=== PATIENT | female | born 1955 | race Caucasian/White ===

== ENCOUNTER 2019-02-11 07:51 | Inpatient (IN) | payer OTHER ==
[~2019-02-11] VITALS: Ht 157.5 cm; Wt 71.8 kg
[~2019-02-11 07:51] MED LIST: ALBU2.5V5; Flovent Diskus50 MCG; LEVFLO500
[2019-02-11] MEDS ORDERED: LEVSOD50 PO (08:00)
[2019-02-11 08:21] LABS: BASOPHILS ABSOLUTE AUTO 0.11 K/mm3 (0.00-0.23); BASOPHILS PERCENT AUTO 1 % (0-2); EOSINOPHILS ABSOLUTE AUTO 0.04 K/mm3 (0.00-0.68); EOSINOPHILS PERCENT AUTO 0 % (0-6); Hemoglobin 14.7 g/dL (11.5-16.0); IMMATURE GRAN ABSOLUTE AUTO 0.25 K/mm3 (0.00-0.10); IMMATURE GRAN PERCENT AUTO 2 % (0-1); LYMPHOCYTES ABSOLUTE AUTO 1.95 K/mm3 (0.84-5.20); LYMPHOCYTES PERCENT AUTO 14 % (21-46); MONOCYTES ABSOLUTE AUTO 0.44 K/mm3 (0.16-1.47); MONOCYTES PERCENT AUTO 3 % (4-13); Mean Corpuscular HGB 29.5 pg (26.0-34.0); Mean Corpuscular HGB Conc 32.7 g/dL (31.5-36.5); Mean Corpuscular Volume 90 fL (80-100); Mean Platelet Volume 10.2 fL (9.1-12.4); NEUTROPHILS ABSOLUTE AUTO 11.29 K/mm3 (1.96-9.15); NEUTROPHILS PERCENT AUTO 80 % (41-73); Platelet Count 400 K/mm3 (150-400); RDW Coefficient Variation 13.4 % (11.7-14.2); RDW Standard Deviation 44.4 fL (35.1-46.3); Red Blood Cell Count 4.99 M/mm3 (3.80-5.20); White Blood Cell Count 14.08 K/mm3 (4.00-11.30)
[2019-02-11 08:33] LABS: Alanine Aminotransfer (ALT/SGP 15 U/L (12-78); Albumin, Blood 2.4 g/dL (3.4-5.0); Albumin/Globulin Ratio 0.6 (0.8-1.8); Alk Phos 82 U/L (50-136); Anion Gap 12 mmol/L (6-16); Aspartate Aminotrans (AST/SGOT 16 U/L (12-37); Bilirubin, Total 0.2 mg/dL (0.1-1.0); Blood Urea Nitrogen 12 mg/dL (8-24); Bun/Creatinine Ratio 20.4 (12.0-20.0); CO2, Blood 25 mmol/L (21-32); Calcium, Blood 8.3 mg/dL (8.5-10.1); Chloride, Blood 103 mmol/L (98-108); Creatinine, Blood 0.59 mg/dL (0.40-1.00); Globulin, Blood 4.3 g/dL (2.2-4.0); Glomerular Filtration Rate >60 (60-); Glucose, Blood 142 mg/dL (70-99); Potassium, Blood 3.1 mmol/L (3.5-5.5); Sodium, Blood 140 mmol/L (136-145); Total Protein, Blood 6.7 g/dL (6.4-8.2)
--- NOTE | 2019-02-11 16:07 | NUR ---
SHIFT SUMMARY PT STILL AWAITING TO GO TO OR THIS EVENING. NPO. MEDICATING WITH 50 MCG IV FENTANYL FOR ABD PAIN. PT HAS OCCASSIONAL NAUSEA, BUT HAS HAD NO EMESIS SINCE ER. JOHNFRAN PRN. IVF + ABX INFUSING PER ORDERS. 1 SBA TO RESTROOM. CALL LIGHT WITHIN REACH.
--- NOTE | 2019-02-11 17:00 | NUR ---
ASSUMED CARE OF PATIENT AT THIS TIME. PLAN FOR SURGERY THIS EVENING. FAMILY AT BEDSIDE. Gabe MCCORMICK INFUSING.
--- NOTE | 2019-02-11 17:30 | NUR ---
PT TO SURGERY AT THIS TIME. DAY SURGERY NOTIFIED OF NEED FOR 18G IV. PT HAS VOIDED AND REMOVED CLOTHING. NO JEWELRY. IV FLUIDS AND K RIDER SENT WITH DAY SURGERY STAFF. ABX SENT WITH PATIENT.
--- NOTE | 2019-02-11 20:14 | NUR ---
02/11/192013 Rosalio Sommer PT ON SCHEDULED ANTIBIOTICS
--- NOTE | 2019-02-11 22:00 | NUR ---
PT ARRIVES TO ICU 13 AT 2120 UNDER ICU/PACU STATUS. PT ARRIVES INITALLY ON NON REBREATHER MASK AND HAS BEEN CHANGED OVER TO 5 L/M O2 PER NASAL CANNULA. PT HAS BEEN MEDICATED WITH FENTANYL AND WITH ZOFRAN FOR PAIN AND NAUSEA. DRESSINGS TO ABDOMEN CDI. COLOSTOMY PRESENT. PT ABLE TO ANSWER QUESTIONS APPROPRIATELY. DOES FORGET THAT SHE HAS A CATHETER, AND REPEATS HERSELF AT TIMES. SEE ICU/PACU CHARTING.
--- NOTE | 2019-02-11 22:33 | NUR ---
REPORT CALLED TO PARTHA SWENSON. REPORT GIVEN IN SBAR FASHION. PT TO BE TRANSFERRED TO ROOM SURGICAL 228.
--- NOTE | 2019-02-11 23:19 | NUR ---
PT TRANSFERRED TO ROOM 228 IN STABLE CONDITION. FAMILY ACCOMPANIES PT TO ROOM. PT OUT FROM ICU/PACU AT 2300.
--- NOTE | 2019-02-11 23:43 | NUR ---
PT ARRIVED TO UNIT FROM ICU/RECOVERY AT APPROX 2300. PT C/O NAUSEA. SPOKE TO DR RUBY AND GOT A ONE TIME DOSE OF ZOFRAN. PATENT CLERK IS SET UP PT EDUCATED ON USE OF PATENT CLERK, DEMONSTRATED UNDERSTANDING. WILL CONTINUE TO MONITOR FOR USE. PATIENT REPOSITIONED IN BED ON TO SIDE PER PT REQUEST. AT THIS TIME OSTOMY IS PINK AND BEEFY WITH SMALL AMOUNT RED LIQUID IN BAG. PT IS TOLERATING ICE CHIPS AT THIS TIME. PATIENT AA0X4 BUT GROGGY AND IN PAIN. PICCO DRESSING IS IN PLACE ON ABDOMEN. NO DRAINAGE NOTED.
--- NOTE | 2019-02-12 04:46 | NUR ---
SHIFT SUMMARY POD 1 SIGMOID COLECTOMY WITH NEW OSTOMY. PT AAOX4 VSS. PATIENT HAS BEEN IN A LOT OF PAIN SINCE RETURNING. FENT FURNACE BUILDER IN PLACE PAIN HAS BEEN GRADUALLY GOING DOWN SINCE SHE HAS BEEN USING IT. PT TITRATED DOWN TO 1L O2 VIA NASAL CANULA. DENIES SOB. LUNG SOUNDS WERE CLEAR. MEDICATED FOR NAUSEA DURING SHIFT, PT STATES RELIEF AFTER ZOFRAN. OSTOMY IS PINK AND BEEFY WITH SMALL AMOUNT SS DRAINAGE IN BAG. PICCO DRESSINIG IS CDI BUT IS NON COMPRESSED, PT DECLINED DRESSING CHANGE R/T PAIN AT THIS TIME. BOWEL SOUNDS WERE HYPOACTIVE. NO GAS SEEN AT THIS TIME.
[2019-02-12 05:18] LABS: Hematocrit 40.6 % (33.0-51.0); Hemoglobin 13.4 g/dL (11.5-16.0); Mean Corpuscular HGB 29.7 pg (26.0-34.0); Mean Corpuscular Volume 90 fL (80-100); Mean Platelet Volume 10.2 fL (9.1-12.4); Platelet Count 341 K/mm3 (150-400); RDW Coefficient Variation 13.7 % (11.7-14.2); RDW Standard Deviation 45.6 fL (35.1-46.3); Red Blood Cell Count 4.51 M/mm3 (3.80-5.20); White Blood Cell Count 29.06 K/mm3 (4.00-11.30)
[2019-02-12 05:39] LABS: BAND PERCENT MAN 39 % (0-8); BASOPHILS PERCENT MAN 0 % (0-2); EOSINOPHILS PERCENT MAN 0 % (0-6); LYMPHOCYTES ABSOLUTE MAN 4.35 K/mm3 (0.84-5.20); LYMPHOCYTES PERCENT MAN 15 % (21-46); METAMYELOCYTE ABSOLUTE MAN 0.58 K/mm3 (0.00-0.00); METAMYELOCYTE PERCENT MAN 2 % (0-0); MONOCYTES ABSOLUTE MAN 0.29 K/mm3 (0.16-1.47); MONOCYTES PERCENT MAN 1 % (4-13); NEUTROPHILS ABSOLUTE MAN 23.82 K/mm3 (1.96-9.15); SEG NEUTROPHILS PERCENT MAN 43 % (41-73); TOTAL CELLS COUNTED 100
[2019-02-12 05:40] LABS: Anion Gap 8 mmol/L (6-16); Blood Urea Nitrogen 8 mg/dL (8-24); Bun/Creatinine Ratio 14.5 (12.0-20.0); CO2, Blood 29 mmol/L (21-32); Calcium, Blood 7.7 mg/dL (8.5-10.1); Chloride, Blood 106 mmol/L (98-108); Creatinine, Blood 0.55 mg/dL (0.40-1.00); Glomerular Filtration Rate >60 (60-); Glucose, Blood 147 mg/dL (70-99); Potassium, Blood 3.2 mmol/L (3.5-5.5); Sodium, Blood 143 mmol/L (136-145)
--- NOTE | 2019-02-12 06:12 | NUR ---
CRITICAL VALUE SPOKE TO DR. RUBY ABOUT LACTIC ACID OF 2.2. NO NEW ORDERS AT THIS TIME. PT HAS BEEN RESTING IN BED, PAIN IMPROVING WITH SERVICER TRAVEL TRAILERS.
--- NOTE | 2019-02-12 13:21 | NUR ---
DR MARQUIS IN TO SEE PT.
--- NOTE | 2019-02-12 18:13 | NUR ---
SUMMARY NO ACUTE CHANGES T/O SHIFT. PT SAT UP IN CHAIR TWICE TODAY AND AMBULATED IN [place] ONCE. PAIN CONTROLLED PER BANQUET SERVER. PT REPORTED SOME REFLUX THIS AFTERNOON BUT APPEARS TO BE TOLERATING CLEAR LIQUIDS. NO SIGNIFICANT OUTPUT FROM OSTOMY. CALL LIGHT IN REACH.
--- NOTE | 2019-02-12 21:13 | NUR ---
CHANGED TESTS SUPERINTENDENT BAG TO NEW BAG WITH PARTHA ANGELA. LINE REPRIMED IT WAS EMPTY. PATIENT RESTING IN BED REPORTS PAIN IS AT A TOELRABLE PLACE.
--- NOTE | 2019-02-13 04:16 | NUR ---
SHIFT SUMMARY POD 2 SIGMOID COLECTOMY WITH NEW OSTOMY. PT A00X4 VSS. PICCO DRESSING INTACT MIDLINE, DRESSING IS NON COMPRESSED WITH PLANS TO CHANGE TODAY PER PREVIOUS SHIFT. OSTOMY IS PINK AND BEEFY, NO FLATUS OR STOOL SEEN. PINISH RED LIQUID DRAINAGE IN BAG, SMALL AMOUNT SS DRAINAGE ON PICCO DRESSING. BOWEL SOUNDS HEARD AND PT STATED SHE FELT IT MOVING. PAIN MANAGED WELL WITH RESIDENT SURGEON, PT STATED SHE "WAS WORKING ON NOT NEEDING MUCH". DENIES NAUSEA DURING SHIFT. PT HAS BEEN REPOSITIONING SELF FREQUENTLY IN BED. TOLERATING PO ICE CHIPS WELL.
[2019-02-13 05:19] LABS: Hematocrit 35.5 % (33.0-51.0); Hemoglobin 11.4 g/dL (11.5-16.0); Mean Corpuscular HGB 29.3 pg (26.0-34.0); Mean Corpuscular HGB Conc 32.1 g/dL (31.5-36.5); Mean Corpuscular Volume 91 fL (80-100); Mean Platelet Volume 10.6 fL (9.1-12.4); Platelet Count 330 K/mm3 (150-400); RDW Coefficient Variation 13.7 % (11.7-14.2); RDW Standard Deviation 46.4 fL (35.1-46.3); Red Blood Cell Count 3.89 M/mm3 (3.80-5.20); White Blood Cell Count 27.26 K/mm3 (4.00-11.30)
[2019-02-13 05:39] LABS: BAND PERCENT MAN 15 % (0-8); BASOPHILS PERCENT MAN 0 % (0-2); EOSINOPHILS PERCENT MAN 0 % (0-6); LYMPHOCYTES ABSOLUTE MAN 1.63 K/mm3 (0.84-5.20); LYMPHOCYTES PERCENT MAN 6 % (21-46); METAMYELOCYTE ABSOLUTE MAN 0.27 K/mm3 (0.00-0.00); METAMYELOCYTE PERCENT MAN 1 % (0-0); MONOCYTES ABSOLUTE MAN 0.27 K/mm3 (0.16-1.47); MONOCYTES PERCENT MAN 1 % (4-13); NEUTROPHILS ABSOLUTE MAN 25.07 K/mm3 (1.96-9.15); SEG NEUTROPHILS PERCENT MAN 77 % (41-73); TOTAL CELLS COUNTED 100
[2019-02-13 05:42] LABS: Anion Gap 6 mmol/L (6-16); Blood Urea Nitrogen 5 mg/dL (8-24); Bun/Creatinine Ratio 9.4 (12.0-20.0); CO2, Blood 34 mmol/L (21-32); Calcium, Blood 8.1 mg/dL (8.5-10.1); Chloride, Blood 100 mmol/L (98-108); Creatinine, Blood 0.53 mg/dL (0.40-1.00); Glomerular Filtration Rate >60 (60-); Glucose, Blood 108 mg/dL (70-99); Potassium, Blood 2.7 mmol/L (3.5-5.5); Sodium, Blood 140 mmol/L (136-145)
--- NOTE | 2019-02-13 12:19 | NUR ---
1130 SHOWERED, OSTOMY APPLIANCE REMOVED AND DANIKA DRESSING PRIOR TO SHOWER. MEDIPORE DRESSING AND NEW OSTOMY APPLIANCE APPLIED AFTER SHOWER. INCISION WITH KIRSTIE INTACT, NO DRAINAGE. VERBAL INSTRUCTIONS TO PATIENT AND HER ROOMMATE REGARDING HOW TO CHANGE OSTOMY APPLIANCE AND HOW TO EMPTY OSTOMY APPLIANCE
--- NOTE | 2019-02-13 17:37 | NUR ---
SUMMARY PATIENT AMBULATING INDEPENDENTLY IN ROOM AND HALLWAYS. PATIENT REPORTS GOOD PAIN CONTROL ON PO MEDS. TOLERATING CLEAR LIQUID DIET WITHOUT NAUSEA. FLATUS PRESENT IN OSTOMY BAG AND PATIENT BELCHING OCC.
[2019-02-14 04:54] LABS: BASOPHILS ABSOLUTE AUTO 0.04 K/mm3 (0.00-0.23); BASOPHILS PERCENT AUTO 0 % (0-2); EOSINOPHILS ABSOLUTE AUTO 0.26 K/mm3 (0.00-0.68); EOSINOPHILS PERCENT AUTO 2 % (0-6); Hematocrit 32.1 % (33.0-51.0); Hemoglobin 10.3 g/dL (11.5-16.0); IMMATURE GRAN ABSOLUTE AUTO 0.27 K/mm3 (0.00-0.10); IMMATURE GRAN PERCENT AUTO 2 % (0-1); LYMPHOCYTES PERCENT AUTO 10 % (21-46); MONOCYTES ABSOLUTE AUTO 0.35 K/mm3 (0.16-1.47); MONOCYTES PERCENT AUTO 2 % (4-13); Mean Corpuscular HGB 29.2 pg (26.0-34.0); Mean Corpuscular HGB Conc 32.1 g/dL (31.5-36.5); Mean Corpuscular Volume 91 fL (80-100); Mean Platelet Volume 10.3 fL (9.1-12.4); NEUTROPHILS ABSOLUTE AUTO 14.41 K/mm3 (1.96-9.15); NEUTROPHILS PERCENT AUTO 85 % (41-73); Platelet Count 304 K/mm3 (150-400); RDW Coefficient Variation 13.8 % (11.7-14.2); RDW Standard Deviation 46.3 fL (35.1-46.3); Red Blood Cell Count 3.53 M/mm3 (3.80-5.20); White Blood Cell Count 16.93 K/mm3 (4.00-11.30)
[2019-02-14 05:11] LABS: Anion Gap 4 mmol/L (6-16); Blood Urea Nitrogen 3 mg/dL (8-24); CO2, Blood 32 mmol/L (21-32); Calcium, Blood 7.6 mg/dL (8.5-10.1); Chloride, Blood 102 mmol/L (98-108); Glomerular Filtration Rate >60 (60-); Glucose, Blood 118 mg/dL (70-99); Potassium, Blood 3.1 mmol/L (3.5-5.5); Sodium, Blood 138 mmol/L (136-145)
--- NOTE | 2019-02-14 16:19 | NUR ---
SHIFT SUMMARY PT CONT TO DO WELL. NO ACUTE CHANGES. MEDICATING WITH 1 NORCO PRN FOR PAIN. MIDLINE INCISION REMAINS CDI. OSTOMY APPLIANCE INTACT. VERY SCANT SS DRAINGE IN BAG AND NO GAS YET. STOMA BEEFY RED. PT JOSS CLEAR LIQ DIET WITH NO COMPLAINTS OF N/V. NO IV ACCESS--ENCOURAGING PO INTAKE. INDEP IN HALLWAYS AND HAS BEEN IN CHAIR MOST OF DAY. VOIDING. USES CALL LIGHT APPROPRIATELY.
--- NOTE | 2019-02-15 04:23 | NUR ---
SHIFT SUMMARY: KYUNG HAS RESTED INTERMITTENTLY THROUGHOUT THE NIGHT. SHE HAS REQUESTED PAIN MEDICATION TWICE THIS SHIFT WHICH SHE REPORTS IS EFFECTIVE. SHE STATES THAT SHE IS URINATING FREQUENTLY. SHE DENIES PASSING ANY FLATUS OR STOOL THROUGH HER STOMA YET. SHE IS AMBULATING INDEPENDENTLY IN THE ROOM AND HALLWAYS. SHE IS TOLERATING CLEAR LIQUIDS WELL. MIDLINE INCISION IS C/D&I. SHE IS ABLE TO MAKE HER NEEDS KNOWN. SHE IS SITTING IN THE BEDSIDE CHAIR WITH HER CALL LIGHT IN REACH. SHE HAS AMBULATED IN THE HALLWAY ONCE THIS MORNING.
[2019-02-15 05:07] LABS: BASOPHILS ABSOLUTE AUTO 0.08 K/mm3 (0.00-0.23); BASOPHILS PERCENT AUTO 1 % (0-2); EOSINOPHILS ABSOLUTE AUTO 0.54 K/mm3 (0.00-0.68); EOSINOPHILS PERCENT AUTO 4 % (0-6); Hematocrit 35.1 % (33.0-51.0); Hemoglobin 11.1 g/dL (11.5-16.0); IMMATURE GRAN ABSOLUTE AUTO 0.29 K/mm3 (0.00-0.10); IMMATURE GRAN PERCENT AUTO 2 % (0-1); LYMPHOCYTES ABSOLUTE AUTO 1.61 K/mm3 (0.84-5.20); LYMPHOCYTES PERCENT AUTO 13 % (21-46); MONOCYTES ABSOLUTE AUTO 0.67 K/mm3 (0.16-1.47); MONOCYTES PERCENT AUTO 5 % (4-13); Mean Corpuscular HGB 28.9 pg (26.0-34.0); Mean Corpuscular HGB Conc 31.6 g/dL (31.5-36.5); Mean Corpuscular Volume 91 fL (80-100); Mean Platelet Volume 10.6 fL (9.1-12.4); NEUTROPHILS ABSOLUTE AUTO 9.15 K/mm3 (1.96-9.15); NEUTROPHILS PERCENT AUTO 74 % (41-73); Platelet Count 338 K/mm3 (150-400); RDW Coefficient Variation 13.8 % (11.7-14.2); RDW Standard Deviation 46.7 fL (35.1-46.3); Red Blood Cell Count 3.84 M/mm3 (3.80-5.20); White Blood Cell Count 12.34 K/mm3 (4.00-11.30)
[2019-02-15 05:33] LABS: Anion Gap 6 mmol/L (6-16); Blood Urea Nitrogen 3 mg/dL (8-24); Bun/Creatinine Ratio 6.3 (12.0-20.0); CO2, Blood 29 mmol/L (21-32); Calcium, Blood 7.9 mg/dL (8.5-10.1); Chloride, Blood 104 mmol/L (98-108); Creatinine, Blood 0.48 mg/dL (0.40-1.00); Glomerular Filtration Rate >60 (60-); Glucose, Blood 94 mg/dL (70-99); Potassium, Blood 3.6 mmol/L (3.5-5.5); Sodium, Blood 139 mmol/L (136-145)
--- NOTE | 2019-02-15 16:18 | NUR ---
SHIFT SUMMARY NO ACUTE CHANGES THIS SHIFT. PT CONT TO DO WELL. AMBULATING HALLWAYS INDEP. ABD IS STILL HYPOACTIVE AND MODERATELY DISTENDED, BUT IS SOFT TO THE TOUCH. OSTOMY STILL NOT PRODUCING GAS OR STOOL YET. PT JOSS CLEAR LIQ DIET. 1 NORCO FOR PAIN PRN. USES CALL LIGHT APPROPRIATELY.
--- NOTE | 2019-02-16 08:02 | NUR ---
SHIFT SUMMARY: KYUNG CONTINUES TO TOLERATE CLEAR LIQUIDS WELL. SHE IS INDEPENDENT IN THE ROOM AND HAS AMBULATED IN THE HALLWAY TO ENCOURAGE BOWEL MOTILITY. SHE HAS NOT HAD ANY OUTPUT THROUGH HER STOMA. SHE STATES THAT SEVERAL TIMES SHE HAS FELT THAT SHE WAS GOING TO PASS EITHER GAS OR STOOL, BUT NO RESULTS YET. SHE REPORTS THAT ONE TABLET OF NORCO IS EFFECTIVE FOR HER PAIN. SHE DENIES ANY NUMBNESS OR TINGLING. SHE IS LYING COMFORTABLY IN BED WITH HER CALL LIGHT IN REACH. SHE IS ABLE TO MAKE HER NEEDS KNOWN.
--- NOTE | 2019-02-16 16:47 | NUR ---
SUMMARY: PT IS POD5 FOR SIGMOID COLECTOMY WITH OSTOMY PLACEMENT. NO ACUTE CHANGE TODAY, A/O, VSS. SMALL, JELLY-LIKE AMT OF OUTPUT FROM OSTOMY THIS AFTERNOON. STOMA WNL. PT HAS COMPLAINED OF MINIMAL PAIN. HAS HAS EMESIS X2, REPORTS NAUSEA AFTER A WALK AND MAYBE "OVER DID IT" PT MEDICATED AND RESTING AT THIS TIME. OSTOMY APPLIANCE CHANGED TODAY AND PT EDUCATED ABOUT OSTOMY CARE. PT HAS BEEN INDEPENDENT IN ROOM, NO SAFETY CONCERNS.
--- NOTE | 2019-02-17 06:32 | NUR ---
SHIFT SUMMARY HAS RESTED WELL THROUGHOUT SHIFT. DARK BROWN SOFT BM EMPTIED FROM COLOSTOMY X2 THIS SHIFT. N/V TREATED X2, SECOND TIME WITH REGLAN THAT WAS EFFECTIVE. PAIN MANAGED WITH NORCO 2 TABS. TOLERATING HYDRATION WELL AFTER 20G PIV PLACED TO LEFT HAND X1 ATTEMPT AND NS STARTED AT 125ML/HR PER MD ORDERS. DENIES FURTHER NEEDS AT THIS TIME. SAFETY MEASURES IN PLACE. WILL GIVE HAND OFF TO ONCOMING SHIFT USING SBAR.
--- NOTE | 2019-02-17 12:55 | NUR ---
[facility], VERBALIZED UNDERSTANDING.
--- NOTE | 2019-02-17 18:35 | NUR ---
SUMMARY: PT IS POD 6 FOR COLECTOMY. NO ACUTE CHANGE TODAY, VSS, A/O. PT INDEPEDENT IN ROOM. PT VERY RECEPTIVE TO OSTOMY EDUCATION AND SELF CARE TODAY. PT TAUGHT HOW TO PLACE APPLIANCE ON STOMA. PT HAS EMPTIED OSTOMY BAG SERVERAL TIMES THIS SHIFT. REPORTS MINIMAL PAIN, NO NAUSEA. GAS AND LIQUID STOOL FROM OSTOMY. DR. RUBY SAW PT AT ABOUT 1800, PLAN TO ADVANCE DIET. WILL CTM AND REPORT TO NOC RN.
--- NOTE | 2019-02-18 07:30 | NUR ---
PT STATED SHE WAS UP ALL NIGHT WITH A DRY COUGH STATED HER ABD IS SORE BECAUSE OF THAT WIILL MED ABD SOFT PASSING FLATUS AND STOOL WILL ADV DIET TO FULL LIQ
--- NOTE | 2019-02-18 07:43 | NUR ---
POD 7 S/P COLECTOMY/COLOSTOMY. PT VSS T/O NIGHT. INCISION CDI. OSTOMY PUTTING OUT BROWN STOOL, PT MANAGING OSTOMY. PT DENIED PAIN T/O NIGHT. REP INC IN ABD PAIN THIS AM AFTER COUGHING DURING NIGHT. PT AMB INDEP, JOSS WELL. BEDSIDE REPORT GIVEN TO DAY RN.
--- NOTE | 2019-02-18 07:51 | NUR ---
PT HAD SOME NAUSEA NO EMESIS FROM PAIN MED ON EMPTY STOMACH ZOFRAN GIVEN
--- NOTE | 2019-02-18 09:02 | NUR ---
NAUSEA GONE JOSS FULL DIET WILL CONT FOR LUNCH IF JOSS WILL ADV TO REG FOR DINNER MEDS GIVEN
--- NOTE | 2019-02-18 13:15 | NUR ---
pt stated no nausea after lunch no abd pain or bloating still passing stool and flatus will adv to reg for dinner
--- NOTE | 2019-02-18 16:02 | NUR ---
pt req pain meds will give some pudding first due to the nausea this am pt stated she just started getting the cough back and it hurt her stomach
--- NOTE | 2019-02-18 16:50 | NUR ---
THIS RN RECIEVED REPORT AND IS ASSUMING CARE OF PT AT THIS TIME.
--- NOTE | 2019-02-18 18:29 | NUR ---
DR RUBY HERE TO SEE PT.
--- NOTE | 2019-02-19 04:31 | NUR ---
SHIFT SUMMARY PT IS A/O X4 AND IND. IN ROOM. PT HAS REPORTED ABD PAIN AND MEDICATED PER ORDERS. OSTOMY APPLIANCE CHANGED THIS SHIFT D/T NOT STAYING IN PLACE. ABD MIDLINE DRESSING ALSO CHAGNED D/T LEAKAGE FROM OSTOMY. PT HAS HAD SOME NAUSEA AND MED PER ORDERS, BUT NO EMESIS. PT IS VOIDING AND OSTOMY IS PUTTING OUT SOFT BROWN STOOL. ASSISTED WITH ADL'S PRN. TOLERATING PO INTAKE.
[2019-02-19] MEDS ORDERED: AMOCLA875 PO (13:45)
[2019-02-19] MEDS ORDERED: HYDR1TAB94 PO (13:46)
[2019-02-19] MEDS ORDERED: ONDA4ODT (13:46)
--- NOTE | 2019-02-19 14:35 | NUR ---
PT HAD NO DANIKA DRAIN TO TAKE OFF.
--- NOTE | 2019-02-19 14:35 | NUR ---
DISCHARGE; PT EATING AND DRINKING, VOIDING. OSTOMY HAVING OUTPUT. PT NOT HAVING ANY NAUSEA TODAY. PT REPORTS UNDERSTANDING OF OSTOMY AND USING IT/BAG ECT. MEDICAL REPRESENTATIVE REPORTS DISCUSSING H.H. WITH PT. PT SENT WITH OSTOMY SUPPLIES AND REPORTS UNDERSTANDING OF HOW TO USE THEM. PT SENT WITH SCRIPTS AND PAPERWORK. FAMILY PRESENT AT TIME OF DISCHARGE. IV OUT WNL, NO OTHER IV'S IN PLACE. PT/FAMILY REPORTS UNDERSTANDING OF DISCHARGE INSTRUCTIONS. PAPERWORK WAS FAXED FOR OSTOMY SUPPLIES.
== END 2019-02-19 14:50 | disposition home or self-care (01) | DRG 853 ==
LOC: ER 07:51 → SURS 09:35
PROVIDERS: Emergency Medicine; Surgery; ADMIT Surgery
PROC: 0DTN0ZZ Resection of Sigmoid Colon, Open Approach (ICD-10-PCS; principal; 2018-02-11)
PROC: 0D1N0Z4 Bypass Sigmoid Colon to Cutaneous, Open Approach (ICD-10-PCS; 2018-02-11)
DX: A41.9 Sepsis, unspecified organism (principal); K65.9 Peritonitis, unspecified; K57.80 Diverticulitis of intestine, part unspecified, with perforation and abscess without bleeding; K21.9 Gastro-esophageal reflux disease without esophagitis; E87.6 Hypokalemia; E03.9 Hypothyroidism, unspecified; J44.9 Chronic obstructive pulmonary disease, unspecified; F17.200 Nicotine dependence, unspecified, uncomplicated
CPT/HCPCS: 36415; 74176; 80048; 80053; 83605; 83690; 85025; 88307; 94640; 94760; 96361; 96365; 96375; 96376; 99285-25; A9270-GY; C9113; J0330; J1100; J1170; J1650; J2250; J2370; J2405; J2543; J2704; J2710; J2765; J3010; J3480; J7030; J7120

== ENCOUNTER 2019-06-10 11:30 | Emergency (ER) | payer OTHER ==
[~2019-06-10] VITALS: Ht 162.6 cm; Wt 70.3 kg
[~2019-06-10 11:30] MED LIST changes: +AMOCLA875 PO; +HYDR1TAB94 PO; +LEVSOD50 PO; +ONDA4ODT
[2019-06-10] MEDS ORDERED: PRED20 PO (11:53)
[2019-06-10] MEDS ORDERED: CLOB.05TO TOP (11:53)
== END 2019-06-10 12:08 | disposition home or self-care (01) ==
LOC: ER 11:30
DX: L25.9 Unspecified contact dermatitis, unspecified cause (principal); E03.9 Hypothyroidism, unspecified; J44.9 Chronic obstructive pulmonary disease, unspecified; F17.200 Nicotine dependence, unspecified, uncomplicated; Z79.899 Other long term (current) drug therapy; Z79.51 Long term (current) use of inhaled steroids
CPT/HCPCS: 99283